=== PATIENT | female | born 1985 | race American Indian/Alaskan Native ===

== ENCOUNTER 2016-10-28 11:16 | Emergency (ER) | payer SELFPAY ==
[2016-10-28 11:36] VITALS: BP 116/63
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
[2016-10-28] MEDS: TORADOL IM ONE (12:27)
== END 2016-10-28 12:39 | disposition home or self-care (01) ==
LOC: ED 11:16
DX: M25.562 Pain in left knee (principal); G89.29 Other chronic pain; Z87.891 Personal history of nicotine dependence; Z88.0 Allergy status to penicillin
CPT/HCPCS: 96372; 99282; J1885